=== PATIENT | male | born 1980 | race Caucasian/White ===

== ENCOUNTER 2024-05-29 12:39 | Outpatient (CLI) | payer BC, SELFPAY ==
--- NOTE | 2024-05-29 12:51 | ECG_ITS ---
APPROVED REPORT Exam: Resting ECG HR:78 bpm ECG Measurements Heart Rate 78 AXES VT 137 P 56 QRSd 104 QRS 61 QT 343 T 44 QTc 377 Conclusion SINUS RHYTHM NORMAL ECG INTERPRETATION BASED ON A DEFAULT AGE OF 38 YEARS UNCONFIRMED REPORT Electronically signed by : Odilon Sears MD 05/31/2024 07:58:30
[2024-05-29 12:52] LABS: Basophils # 0.1 K/mm3 (0-0.2); Eosinophils # 0.4 K/mm3 (0.0-0.4); Hematocrit 49.2 % (42.0-52.0); Hemoglobin 16.5 g/dL (14.1-18.0); Lymphocytes # 3.1 K/mm3 (0.7-4.5); Lymphocytes % 24.2 % (10-50); Mean Corpuscular HGB Conc 33.5 g/dL (31.8-35.4); Mean Corpuscular Hemoglobin 31.6 pg (27.0-31.2); Mean Corpuscular Volume 94.4 fl (80-94); Mean Platelet Volume 8.2 fl (7.4-10.4); Monocytes # 0.7 K/mm3 (0.1-1.0); Monocytes % 5.5 % (1.7-9.3); Neutrophils # 8.4 K/mm3 (1.8-7.8); Neutrophils % 66.3 % (37.0-80.0); Platelet Count 274 K/mm3 (142-424); Red Blood Count 5.22 M/mm3 (4.60-6.20); Red Cell Distribution Width 12.8 % (11.5-17.5); White Blood Count 12.7 K/mm3 (4.8-10.8)
[2024-05-29 13:27] LABS: Anion Gap 9.7 mEq/L (5-15); Blood Urea Nitrogen 10 mg/dl (9-20); Calcium 9.4 mg/dl (8.4-10.2); Carbon Dioxide 24 mmol/L (22.0-30.0); Chloride 106 mmol/L (98-107); Estimated Glomerular Filt Rate 121 ml/min (>60); GFR (African American) 147 ML/MIN (>60); Glucose 121 mg/dl (74-100); Potassium 4.7 mmoL/L (3.5-5.1); Sodium 135 mmol/L (136-145)
== END 2024-05-29 23:59 | disposition home or self-care (01) ==
LOC: RT 12:40
PROVIDERS: Nurse Anesthetist, Certified Registered; Visit Provider Surgery
DX: L72.3 Sebaceous cyst (principal)
CPT/HCPCS: 36415; 80048; 85025; 93005

== ENCOUNTER 2024-06-01 08:26 | Day surgery (SDC) | payer BC, SELFPAY ==
[2024-05-26 13:13] VITALS: BMI 27.9
[2024-06-01] VITALS (9 sets, daily range): BP systolic 119–135; BP diastolic 58–81; PULSE 75–99; RESP 14–18; TEMP 36.2–36.8; O2SAT 95–98
[2024-06-01] MEDS: LACTATED RINGERS 1000ML 1,000 ML 25 ML IV (09:07)
--- NOTE | 2024-06-01 10:44 | P.PNANES_ITS ---
[facility] Disclaimer: The information contained in this section may have been updated after the patient was seen, as this information can be updated by other users. Medical History Diabetes HLD (hyperlipidemia) Hypertension Surgical History History of tooth extraction Family History Other Family history of heart disease Social History Smoking Status: Current every day smoker alcohol intake: never substance use type: denies use current occupational status: employed Travel in the last 8 weeks: None [facility] Anesthesia Checklist Patient Identification Patient Identification: Verbal (Name & ) Structural Data Admitted From: Home Planned Operative Procedure/s: excision cyst on neck Consent for Planned Operative Procedure(s) Verified: Yes NPO Status Verified Time NPO: 00:00 Additional verifications Anesthesia Reactions: No Hx Blood Transfusions: No Airway Assessment Mallampati Score:: Class II C-Spine Mobility Assessed: Yes TMJ Mobility Assessed: Yes Dentition: Dentures-good fit Neurological Assessment Level of Consciousness: Awake, Alert and Appropriate Anesthesia Plan Anesthesia Risk discussed: Yes Anesthesia Plan: Verified ASA Class: II Anesthesia Type: General
[2024-06-01] MEDS: LIDOCAINE 1% 20ML MDV 20 ML (11:52)
[2024-06-01] MEDS: ROPIVACAINE 0.5% 30ML VIAL 150 MG (11:52)
[2024-06-01] MEDS: CLINDAMYCIN PHOSPHATE/D5W 900 MG/50 ML PIGGYBACK 100 MG IV (11:53)
--- NOTE | 2024-06-01 12:27 | P.OP_ITS ---
Date of procedure: 06/01/24 Pre-op Diagnosis:: Sebaceous cyst on the left neck Post-op Diagnosis:: Same Procedure performed:: Excision of sebaceous cyst from the left neck (excisional length approximately 3 cm) with intermediate complexity closure. Surgeon:: Nathanael Hudson MD PRE PLANNING ADVISOR:: Obdulio Garcia Anesthesia: LMA Estimated blood loss (mL): 10 Operative findings:: Consistent with large deep inclusion cyst Operative note:: Consent was obtained patient was taken to the operating room. He was given preoperative intravenous antibiotic. In the operating room he was positioned in somewhat right lateral position. General anesthesia was induced via LMA. The area was prepped and draped in the standard surgical fashion. Boundaries of the lesion were marked with a skin marker. Skin was marked with marker for planned elliptical incision excising the central skin punctum. Careful dissection was carried down. Dissection was carried out using mostly tenotomy dissection dissecting the capsule free from the surrounding skin. There was some unavoidable disruption of the capsule with some caseous material present within the cyst. This was evacuated. Ultimately a skin ellipse with the disrupted cyst was excised. Wound was irrigated. Hemostasis was achieved with electrocautery. Local anesthetic was infiltrated. Deep dermal tissues were reapproximated with interrupted 3-0 Vicryl. Skin was closed with interrupted 4- 0 nylon. Clean dry sterile dressing was applied. . Condition: stable Disposition: PACU Complications:: None immediately apparent
--- NOTE | 2024-06-01 12:33 | P.PNANES_ITS ---
[facility] Anesthesia Record Part I Anesthesia Record I Intake, IV Amount: 1,200 Hydration: Adequate Estimated blood loss (mL): 5 Urine output (mL): 0 Blood Products used (#): none Blood Pressure: 126/71 SaO2: 96 Pulse Rate: 93 Airway Patency: Patent Respiratory Rate: 16 Temperature: 98.2 F Patient is:: Drowsy and Stable Stable to PACU at:: 12:30
[2024-06-01 13:19] LABS: POC Glucose,Bedside 173 (70-110)
--- NOTE | 2024-06-02 07:19 | EXP.ANES.II ---
[facility] Anesthesia Record Part II Anesthesia Record Part II Discharge Time: 13:00 Destination: Surgical Day Care (OP Surgery) PACU nurse assessment reviewed?: Yes Patient Condition:: Good Anesthesia Complications:: None Swallowing reflex intact?: Yes Airway Patency: Patent Cyanosis?: No Blood Pressure: 119/78 SaO2: 95 Respiratory Rate: 18 Pulse Rate: 96 Temperature: 97.6 F Mental Status: Alert & Oriented Pain level:: 0 Nausea and/or vomitting:: None Intake, IV Amount: 0 Hydration: Adequate
[2024-06-02 07:20] VITALS: BP 119/78; PULSE 96; RESP 18; TEMP 36.4; O2SAT 95
[2024-06-03 06:41] LABS: POC Glucose,Bedside 167 (70-110)
== END 2024-06-01 13:46 | disposition home or self-care (01) ==
PROVIDERS: Visit Provider Surgery
PROC: (CPT 11423; principal; 2024-06-01 10:15)
DX: L72.3 Sebaceous cyst (principal)
CPT/HCPCS: 11423; 12032; 82962; 96374; J1100; J2250; J2405; J3010; J7120